=== PATIENT | female | born 1970 | race Caucasian/White ===

== ENCOUNTER 2019-05-17 05:42 | Inpatient (IN) | payer MEDICAID ==
[~2019-05-17] VITALS: Ht 154.9 cm; Wt 65.8 kg
[2019-05-17] MEDS ORDERED: SODIUM CHLORIDE 0.9% 1,000 ML IV ONE (06:38)
[2019-05-17] MEDS ORDERED: MORPHINE SULFATE 4 MG/ML CPJ (NOT FOR IM USE) IV STA (06:38)
[2019-05-17 07:05] LABS: BASOPHILS % 0.1 % (0.0-2.0); EOSINOPHILS % 1.1 % (0.0-5.0); HEMATOCRIT. 37.9 % (36.0-48.0); HEMOGLOBIN. 12.6 g/dL (12.0-16.0); LYMPHOCYTES % 13.4 % (20.0-50.0); MEAN CORPUSCULAR HEMOGLOBIN 29.5 pg (28.0-32.0); MEAN CORPUSCULAR VOLUME 88.6 fL (81.0-99.0); MEAN PLATELET VOLUME 8.2 fl (7.4-10.4); MONOCYTES % 5.9 % (2.0-8.0); NEUTROPHILS % 79.5 % (40.0-76.0); PLATELET 160 x1000/uL (130-400); RED BLOOD CELL COUNT 4.28 mill/uL (4.2-5.4); RED CELL DISTRIBUTION WIDTH 14.6 % (11.6-14.6)
[2019-05-17 07:12] LABS: CHLORIDE 99 mEq/L (98-107)
[2019-05-17 07:32] LABS: PROTHROMBIN TIME 10.6 sec (9.6-11.0)
[2019-05-17] MEDS ORDERED: ENOXAPARIN 60MG/0.6ML SYR SUBCUT ONE (08:45)
[2019-05-17] MEDS ORDERED: CLONIDINE 0.1MG TABLET PO PRN (09:30)
[2019-05-17] MEDS ORDERED: DOCUSATE SODIUM 100MG CAPSULE PO PRN (09:30)
[2019-05-17] MEDS ORDERED: MAGNESIUM/ALUMINUM HYDROXIDE/SIMETHICONE 30ML UDC PO PRN (09:30)
[2019-05-17] MEDS ORDERED: GUAIFENESIN 200MG/10ML SUGAR FREE UDC PO PRN (09:30)
[2019-05-17] MEDS ORDERED: LORAZEPAM 0.5MG TABLET PO PRN (09:30)
[2019-05-17] MEDS ORDERED: ZOLPIDEM TARTRATE 5MG TABLET PO PRN (09:30)
[2019-05-17] MEDS ORDERED: NITROGLYCERIN 0.4MG TABLET SL SL PRN (09:30)
[2019-05-17] MEDS ORDERED: KETOROLAC 15MG/ML VIAL IV PRN (09:30)
[2019-05-17] MEDS ORDERED: TRAMADOL 50MG TABLET PO PRN (09:30)
[2019-05-17] MEDS ORDERED: ONDANSETRON HCL 4MG/2ML INJ IV PRN (09:30)
[2019-05-17] MEDS ORDERED: IPRATROPIUM/ALBUTEROL 0.5-3(2.5)MG/3ML NEB NEB PRN (09:30)
[2019-05-17 10:30] VITALS: BP 127/74
[2019-05-17 10:32] VITALS: BP 127/74
[2019-05-17] MEDS ORDERED: INFLUENZA VIRUS VACCINE(AFLURIA) 0.5ML SYR IM ONE (11:15)
[2019-05-17 12:00] VITALS: BP 107/62
[2019-05-17] MEDS: FAMOTIDINE 20MG TABLET PO SCH ×2 (12:10→22:54)
[2019-05-17] MEDS ORDERED: DEXTROSE 50% WATER 50ML SYRINGE IV PRN (15:00)
[2019-05-17 16:00] VITALS: BP 108/62
[2019-05-17] MEDS: BLOOD SUGAR DIAGNOSTIC STRIP TEST SCH ×2 (17:55→21:00)
[2019-05-17] MEDS: INSULIN LISPRO 100 UNITS/ML SUBCUT SCH ×2 (18:24→23:06)
[2019-05-17] MEDS ORDERED: PIOG45TA64 PO (19:45)
[2019-05-17] MEDS ORDERED: ATOR20TA65 MT (19:45)
[2019-05-17] MEDS ORDERED: GLIM4TAB2 MT (19:45)
[2019-05-17 20:00] VITALS: BP 106/65
[2019-05-17] MEDS: ENOXAPARIN 80MG/0.8ML SYR SUBCUT SCH (22:55)
[2019-05-17] MEDS: INSULIN GLARGINE UD 100 UNITS/ML SYR SUBCUT SCH (23:07)
[2019-05-17] MEDS: ACETAMINOPHEN 325MG TABLET PO PRN (23:20)
[2019-05-18] VITALS: BP 124/73
[2019-05-18 04:00] VITALS: BP 112/78
[2019-05-18] MEDS: BLOOD SUGAR DIAGNOSTIC STRIP TEST SCH ×4 (07:51→21:00)
[2019-05-18] MEDS: ENOXAPARIN 80MG/0.8ML SYR SUBCUT SCH ×2 (08:58→20:41)
[2019-05-18] MEDS: FAMOTIDINE 20MG TABLET PO SCH ×2 (08:58→20:40)
[2019-05-18] MEDS: INSULIN LISPRO 100 UNITS/ML SUBCUT SCH ×4 (09:20→20:50)
[2019-05-18 20:00] VITALS: BP 115/69
[2019-05-18] MEDS: INSULIN GLARGINE UD 100 UNITS/ML SYR SUBCUT SCH (22:50)
[2019-05-19] VITALS: BP 112/62
[2019-05-19 04:00] VITALS: BP 122/72
[2019-05-19] MEDS: BLOOD SUGAR DIAGNOSTIC STRIP TEST SCH ×4 (07:20→21:57)
[2019-05-19 08:00] VITALS: BP 116/66
[2019-05-19] MEDS: FAMOTIDINE 20MG TABLET PO SCH ×2 (09:31→21:24)
[2019-05-19] MEDS: ENOXAPARIN 80MG/0.8ML SYR SUBCUT SCH ×2 (09:32→21:25)
[2019-05-19] MEDS: INSULIN LISPRO 100 UNITS/ML SUBCUT SCH ×4 (09:41→21:26)
[2019-05-19 12:00] VITALS: BP 109/62
[2019-05-19 16:00] VITALS: BP 112/62
[2019-05-19 20:00] VITALS: BP_SYST 112; BP_SYST 154; BP_DIAS 67
[2019-05-19] MEDS: ACETAMINOPHEN 325MG TABLET PO PRN (20:11)
[2019-05-19] MEDS: INSULIN GLARGINE UD 100 UNITS/ML SYR SUBCUT SCH (22:43)
[2019-05-20] VITALS: BP 110/63
[2019-05-20 04:00] VITALS: BP 118/84
[2019-05-20] MEDS: BLOOD SUGAR DIAGNOSTIC STRIP TEST SCH ×2 (07:20→12:19)
[2019-05-20 08:00] VITALS: BP 123/73
[2019-05-20] MEDS: FAMOTIDINE 20MG TABLET PO SCH (08:25)
[2019-05-20] MEDS: ENOXAPARIN 80MG/0.8ML SYR SUBCUT SCH (08:25)
[2019-05-20] MEDS: INSULIN LISPRO 100 UNITS/ML SUBCUT SCH ×2 (08:29→12:19)
[2019-05-20 12:00] VITALS: BP 106/71
[2019-05-20 12:09] VITALS: BP 106/71
== END 2019-05-20 12:43 | disposition home or self-care (01) | DRG 197 ==
LOC: ER 06:55 → EDBEDREQ 08:48 → ENRESERV 09:44 → 6EST 10:47
PROVIDERS: ADMIT Internal Medicine; ATTEND Internal Medicine
DX: I82.401 Acute embolism and thrombosis of unspecified deep veins of right lower extremity (principal); E11.65 Type 2 diabetes mellitus with hyperglycemia; I82.621 Acute embolism and thrombosis of deep veins of right upper extremity; E87.1 Hypo-osmolality and hyponatremia; Z91.11 Patient's noncompliance with dietary regimen; Z91.14 Patient's other noncompliance with medication regimen; Z79.01 Long term (current) use of anticoagulants; Z87.440 Personal history of urinary (tract) infections
CPT/HCPCS: 36415; 80061; 82962; 83036; 93005; 93970; 99285; J1650; J1815; J2270; J7030; J7620